=== PATIENT | male | born 1935 | race Caucasian/White ===

== ENCOUNTER 2017-07-04 14:08 | Emergency (ER) | payer MEDICARE, OTHER ==
[2017-07-04] MEDS ORDERED: Lidocaine 4% Cream 5 GM TUBE w/ Tegaderm ONE (15:09)
--- NOTE | 2017-07-04 15:26 | CT ---
NONCONTRAST CT OF THE BRAIN: History: History of trauma. Comparison: 04-22-16 FINDINGS: There is soft tissue swelling overlying the right frontal scalp. There is mild generalized cerebral and cerebellar atrophy which is stable. No definite acute infarct, hemorrhage, or hydrocephalus is p resent. Septum pellucidum and third ventricle are midline. The skull is intact. Visualized paranasal sinuses demonstrates mild mucosal thickening of the ethmoid air cells. Mastoid air cells are clear. IMPRESSION: No acute intracranial abnormality. POS: [facility]
== END 2017-07-04 16:24 | disposition home or self-care (01) ==
LOC: ERS 14:08
DX: S01.81XA Laceration without foreign body of other part of head, initial encounter (principal); I10 Essential (primary) hypertension; W01.10XA Fall on same level from slipping, tripping and stumbling with subsequent striking against unspecified object, initial encounter
CPT/HCPCS: 12002; 70450

== ENCOUNTER 2017-07-10 10:50 | Emergency (ER) | payer MEDICARE, OTHER ==
[2017-07-10] MEDS ORDERED: Bacitracin Zinc 1 Packet ONE (12:26)
== END 2017-07-10 12:35 | disposition home or self-care (01) ==
LOC: ERS 10:50
DX: S01.01XD Laceration without foreign body of scalp, subsequent encounter (principal); I10 Essential (primary) hypertension; Z87.01 Personal history of pneumonia (recurrent); Z85.46 Personal history of malignant neoplasm of prostate; Z79.82 Long term (current) use of aspirin; Z79.899 Other long term (current) drug therapy; X58.XXXD Exposure to other specified factors, subsequent encounter

== ENCOUNTER 2018-02-15 09:16 | Outpatient (CLI) | payer MEDICARE, OTHER ==
--- NOTE | 2018-02-15 10:08 | RAD ---
CHEST PA AND LATERAL: History: 82-year-old male with history of dyspnea. Comparison: 02-11-16 FINDINGS: Alveolar parenchymal change in the right middle lobe, evidence for pneumonia. Atherosclerosis of the aorta with ectasia. Post underlying sternotomy and coronary artery bypass changes. Bilateral hyperinf lation and chronic lung change. Somewhat exaggerated kyphosis. Right middle lobe parenchymal change, evidence for right middle lobe pneumonia. Hyperinflation and ch ronic lung changes. POS: [facility]
== END 2018-02-15 09:17 | disposition home or self-care (01) ==
LOC: RAD 09:16
PROVIDERS: ATTEND Internal Medicine Critical Care Medicine
DX: R06.00 Dyspnea, unspecified (principal); J18.9 Pneumonia, unspecified organism
CPT/HCPCS: 71046

== ENCOUNTER 2018-03-15 09:35 | Outpatient (CLI) | payer MEDICARE, OTHER ==
--- NOTE | 2018-03-15 11:07 | RAD ---
CHEST TWO VIEWS: HISTORY: Dyspnea. Infiltrate. COMPARISON: 02/15/2018 FINDINGS: The cardiac silhouette remains partially obscured by atelectasis within the right middle lobe, medial segment. The lungs are otherwise hyperinflated. The cardiac silhouette and pulmonary vasculature a re otherwise within normal limits. The mediastinum is midline with aortic calcification and postoper ative changes. There are degenerative changes of the thoracic spine. The osseous structures are dem ineralized. IMPRESSION: 1. Persistent atelectasis, right middle lobe, similar in appearance to the previous study. Please c onsider CT chest or bronchoscopy for further evaluation. 2. Atherosclerosis. 3. Chronic obstructive pulmonary disease. POS: [facility]
== END 2018-03-15 09:36 | disposition home or self-care (01) ==
LOC: RAD 09:35
PROVIDERS: ATTEND Internal Medicine Critical Care Medicine
DX: R06.00 Dyspnea, unspecified (principal); J98.11 Atelectasis; I70.90 Unspecified atherosclerosis; J44.9 Chronic obstructive pulmonary disease, unspecified
CPT/HCPCS: 71046

== ENCOUNTER 2018-03-21 08:58 | Outpatient (CLI) | payer MEDICARE, OTHER ==
--- NOTE | 2018-03-21 11:22 | CT ---
CT CHEST WITHOUT CONTRAST: HISTORY: J18.9 (pneumonia). COMPARISON: Chest radiograph from 03/15/2018. FINDINGS: There is bronchiectasis in the right middle lobe. This is tubular bronchiectasis. There is low grad e bronchiectasis within the anterior segment, right lower lobe. There is no focal air space consolid ation. There are a few tree-in-bud opacities within the posterior segment right upper lobe. The lef t lung is relatively clear. No pneumothorax. No large effusion. There is ectasia of the ascending aorta, measuring up to 4.3 cm . No significant pericardial effusion. The upper abdomen is unremarkable. No suspicious lytic or blastic lesions of the skeleton. Healed right anterior fourth, fifth, and six th rib fractures. Old posterior left eighth rib fracture. IMPRESSION: 1. Bronchiectasis, right middle lobe, as well as anterior, right lower lobe, likely from a chronic i nfectious process. Atypical infection is a possibility as the cause for the tubular bronchiectasis. No evidence of current right middle lobe or right lower lobe infectious process. 2. Faint tree-in-bud opacities, posterior segment, right upper lobe, may e sequela of prior or recen t infection, although it is very mild. 3. No suspicious pulmonary mass. 4. 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 POS: [facility]
== END 2018-03-21 08:59 | disposition home or self-care (01) ==
LOC: CT 08:58
PROVIDERS: ATTEND Internal Medicine Critical Care Medicine
DX: J18.9 Pneumonia, unspecified organism (principal); J47.9 Bronchiectasis, uncomplicated; R91.8 Other nonspecific abnormal finding of lung field; I77.810 Thoracic aortic ectasia
CPT/HCPCS: 71250

== ENCOUNTER 2018-06-20 09:29 | Outpatient (CLI) | payer MEDICARE, OTHER ==
--- NOTE | 2018-06-20 10:26 | RAD ---
PA AND LATERAL CHEST RADIOGRAPH: Date: 06-20-18 History: Dyspnea. Comparison: 03-15-18 FINDINGS: Increased interstitial densities in the region of the right middle lobe are again noted with lucency seen likely corresponding to bronchiectasis which was noted on CT thorax on 03-21-18. However, the int erstitial densities are stable compared to the prior exam. Left lung remains clear. 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 Cardiac silhouette and pulmonary vasculature within normal limit s. Prominent degenerative changes in the spine are again seen. Vascular calcifications are seen in th e ectatic and tortuous thoracic aorta. No other interval change. IMPRESSION: Stable chest with interstitial and patchy parenchymal opacities within the right middle lobe with dottie ear lucencies likely related to bronchiectasis noted on the CT thorax from 03-20-18. Findings may be r elated to chronic infectious process. Atypical infectious process is a possibility. POS: [facility]
== END 2018-06-20 09:30 | disposition home or self-care (01) ==
LOC: RAD 09:29
PROVIDERS: ATTEND Internal Medicine Critical Care Medicine
DX: R06.00 Dyspnea, unspecified (principal); R91.8 Other nonspecific abnormal finding of lung field
CPT/HCPCS: 71046

== ENCOUNTER 2019-03-02 16:11 | Emergency (ER) | payer MEDICARE, OTHER ==
[2019-03-02] MEDS ORDERED: Ibuprofen 200 MG TAB ONE (16:25)
== END 2019-03-02 16:40 | disposition home or self-care (01) ==
LOC: ERS 16:11
DX: M54.2 Cervicalgia (principal); I10 Essential (primary) hypertension; Z87.01 Personal history of pneumonia (recurrent); Z79.899 Other long term (current) drug therapy; V49.9XXA Car occupant (driver) (passenger) injured in unspecified traffic accident, initial encounter
CPT/HCPCS: 99284

== ENCOUNTER 2019-03-19 23:49 | Emergency (ER) | payer MEDICARE, OTHER ==
[2019-03-20] MEDS ORDERED: Adacel (T-DAP) 0.5 ML SYRINGE ONE (00:36)
--- NOTE | 2019-03-20 07:22 | CT ---
PRELIMINARY REPORT/[facility]/EMERGENCY AFTER HOURS PROCEDURE EXAM: CT Head Without Contrast EXAM DATE/TIME: 03/20/2019 12:27 AM CLINICAL HISTORY: 83 years old, male; Injury or trauma; Initial encounter; Blunt trauma (contusions or hematomas); Teresa ent HX: 83 year old male presents to the er with chief complaint of fall from standing after tripping over a towel and landing on his head. Patient denies loc, denies any nausea or vomiting. Reports he was going to go to sleep, but decided to come to the er to "get checked out. " patient denies tdap be ing utd. Denies any blood thinners. Lisy any neck or back pain. Denies any other associated complai nts. TECHNIQUE: Imaging protocol: Axial computed tomography images of the head without contrast. COMPARISON: No relevant prior studies available. FINDINGS: Brain: No intracranial hemorrhage. No midline shift. The brain parenchyma appears normal for age. Ventricles: No ventriculomegaly. Bones/joints: Unremarkable. No acute fracture. Sinuses: Right sphenoid sinus disease. Mastoid air cells: Visualized mastoid air cells are well aerated. No mastoid effusion. Soft tissues: Anterior soft tissue contusion IMPRESSION: No acute intracranial abnormality. Thank you for allowing us to participate in the care of your patient. Dictated and Authenticated by: Kalyan Claire MD 03/20/2019 12:54 AM Central Time ([place] & [place]) FINAL REPORT EMERGENT AFTER HOURS CT BRAIN WITHOUT CONTRAST: FINDINGS/IMPRESSION: I agree with the findings and impression given in the preliminary report, per the [facility] physician. No evidence of acute intracranial abnormality.
== END 2019-03-20 01:17 | disposition home or self-care (01) ==
LOC: ERS 23:49
DX: S00.01XA Abrasion of scalp, initial encounter (principal); I10 Essential (primary) hypertension; Z87.01 Personal history of pneumonia (recurrent); Z79.82 Long term (current) use of aspirin; Z79.899 Other long term (current) drug therapy; W18.09XA Striking against other object with subsequent fall, initial encounter
CPT/HCPCS: 70450; 90471; 90715

== ENCOUNTER 2021-06-07 10:57 | Outpatient (CLI) | payer MEDICARE, OTHER | END 2021-06-07 10:58 | disposition home or self-care (01) | LOC: BICRAD 10:57 | PROVIDERS: ATTEND Internal Medicine Critical Care Medicine | DX: R06.00 Dyspnea, unspecified (principal) | CPT/HCPCS: 71046 ==

== ENCOUNTER 2022-06-09 09:39 | Outpatient (CLI) | payer MEDICARE, OTHER | END 2022-06-09 09:40 | disposition home or self-care (01) | LOC: RAD 09:39 | PROVIDERS: ATTEND Internal Medicine Critical Care Medicine | DX: R06.09 Other forms of dyspnea (principal) | CPT/HCPCS: 71046 ==

== ENCOUNTER 2023-04-05 09:26 | Outpatient (CLI) | payer MEDICARE, OTHER | END 2023-04-05 09:27 | disposition home or self-care (01) | LOC: RAD 09:26 | PROVIDERS: ATTEND Internal Medicine Critical Care Medicine | DX: R06.00 Dyspnea, unspecified (principal); J98.4 Other disorders of lung | CPT/HCPCS: 71046 ==